=== PATIENT | male | born 1975 | race Caucasian/White ===

== ENCOUNTER 2018-01-20 11:39 | Observation (INO) | payer MEDICAID, OTHER ==
--- NOTE | 2018-01-20 12:28 | EDPHY ---
H & P Time Seen by Provider: 01/20/18 11:57 HPI/ROS: CHIEF COMPLAINT: Vertigo, visual change HISTORY OF PRESENT ILLNESS: The patient is a 42-year-old male who presents emergency department status post craniotomy. The patient went into the emergency department 2 weeks ago. He was found to have a tumor that required resection. He underwent surgery by Dr. Cavanaugh at [facility] on Sunday. Per report, the procedure was complicated. There is a cyst surrounding the tumor. This increased the length of the planned surgery. Immediately after the operation the patient felt dizzy and had visual change. His dizziness has worsened. He also feels as though his vision is choppy. He has no significant headache. No vomiting. No incoordination. REVIEW OF SYSTEMS: My complete review of systems is negative except as mentioned in the HPI. Past Medical/Surgical History: Includes brain tumor, neck fusion, craniotomy Smoking Status: Never smoked Physical Exam: Vitals noted GENERAL: Mild acute distress, alert. HEENT: Eyes normal to inspection, normal pharynx, no signs of dehydration. Slight nystagmus. NECK: No thyromegaly, no lymphadenopathy, supple. RESPIRATORY: Clear to auscultation bilaterally, no rales, rhonchi or wheezing. CVS: Regular rate and rhythm, no rubs, murmurs, or gallops. ABDOMEN: Soft, nontender, nondistended, no organomegaly. BACK: Normal to inspection, no CVA tenderness. SKIN: Normal color, no rash, warm, dry. No pallor. EXTREMITIES: No pedal edema, no calf tenderness, no Homans sign or cords, no joint swelling. NEURO/PSYCH: Higher functions: Alert and Oriented x3. Normal speech and cognition. Flat affect. Cranial nerves: Normal as tested. Cerebellar: Good finger to nose, good [id number]. Peripheral exam: Normal motor exam. Normal sensation. Normal reflexes. Constitutional: Initial Vital Signs Temperature (C) 36.8 C 01/20/18 11:40 Heart Rate 101 H 01/20/18 11:40 Respiratory Rate 16 01/20/18 11:40 Blood Pressure 124/92 H 01/20/18 11:40 O2 Sat (%) 94 01/20/18 11:40 O2 Delivery Mode Room Air Allergies/Adverse Reactions: CONTRAST DYE Allergy (Uncoded 01/20/18 11:45) Home Medications: Medication Instructions Recorded Lorazepam 01/20/18 Meclizine HCl [Meclizine HCl 25 mg 25 mg PO TID #15 tab 01/20/18 (RX,OTC)] Percocet 01/20/18 Medical Decision Making - Diagnostics Imaging Results: Imaging Impressions Head CT 01/20/18 12:29 Impression: 1. Volume loss and postsurgical changes in the right cerebellum with no definite acute findings. If previous studies can be made available, I would happy to compare them. 2. Fluid superficial and deep to the right occipital craniotomy defect of questionable clinical significance, possibly related to seroma and/or CSF with no visible hemorrhage. Findings discussed with Flor Sanabria MD on January 20, 2018 at 1304 hours. ED Course/Re-evaluation: In the emergency department I discussed possible etiologies with the patient and family. I answered all his questions. Patient had a procedure performed at [facility] on abnormality record of the procedure. I discussed case with Neurosurgery. They recommended noncontrast head CT. Patient was given meclizine [address]: Please refer the dictated report. Findings consistent with postoperative changes. On recheck the patient was complaining of his headache. He is given fentanyl 150 mcg IV. He is given Zofran 4 mg IV for nausea. Rechecked the patient. He did not feel comfortable being discharged home. He still feels dizzy his pain is not controlled. I spoke with Neurosurgery and they will evaluate the patient. The patient will be admitted to the hospitalist service. Differential Diagnosis: My differential includes but is not limited to subarachnoid hemorrhage, subdural hematoma, epidural hematoma, edema, CVA, meningitis, cellulitis, dissection, aneurysm - Data Points Laboratory Results: Laboratory Results 01/20/18 12:05 01/20/18 12:05 01/20/18 01/20/18 01/20/18 12:05 12:05 12:05 WBC 12.24 10^3/uL H 10^3/uL (3.80-9.50) RBC 5.45 10^6/uL 10^6/uL (4.40-6.38) Hgb 17.3 g/dL g/dL (13.7-17.5) Hct 48.5 % % (40.0-51.0) MCV 89.0 fL fL (81.5-99.8) MCH 31.7 pg pg (27.9-34.1) MCHC 35.7 g/dL g/dL (32.4-36.7) RDW 11.5 % % (11.5-15.2) Plt Count 281 10^3/uL 10^3/uL (150-400) MPV 9.5 fL fL (8.7-11.7) Neut % (Auto) 73.3 % % (39.3-74.2) Lymph % (Auto) 20.1 % % (15.0-45.0) [place] % (Auto) 3.8 % L % (4.5-13.0) Eos % (Auto) 1.1 % % (0.6-7.6) Baso % (Auto) 0.3 % % (0.3-1.7) Nucleat RBC Rel Count 0.0 % % (0.0-0.2) Absolute Neuts (auto) 8.98 10^3/uL H 10^3/uL (1.70-6.50) Absolute Lymphs (auto) 2.46 10^3/uL 10^3/uL (1.00-3.00) Absolute Monos (auto) 0.46 10^3/uL 10^3/uL (0.30-0.80) Absolute Eos (auto) 0.13 10^3/uL 10^3/uL (0.03-0.40) Absolute Basos (auto) 0.04 10^3/uL 10^3/uL (0.02-0.10) Absolute Nucleated RBC 0.00 10^3/uL 10^3/uL (0-0.01) Immature Gran % 1.4 % H % (0.0-1.1) Immature Gran # 0.17 10^3/uL H 10^3/uL (0.00-0.10) PT 12.6 SEC SEC (12.0-15.0) INR 0.92 (0.83-1.16) APTT 27.2 SEC SEC (23.0-38.0) Sodium 139 mEq/L mEq/L (135-145) Potassium 4.5 mEq/L mEq/L (3.3-5.0) Chloride 98 mEq/L mEq/L (97-110) Carbon Dioxide 28 mEq/l mEq/l (22-31) Anion Gap 13 mEq/L mEq/L (8-16) BUN 26 mg/dL H mg/dL (7-23) Creatinine 1.0 mg/dL mg/dL (0.7-1.3) Estimated GFR > 60 Glucose 107 mg/dL H mg/dL (70-100) Calcium 9.5 mg/dL mg/dL (8.5-10.4) Medications Given: Discontinued Medications Fentanyl (Sublimaze) 150 mcg IVP EDNOW ONE Stop: 01/20/18 13:22 Last Admin: 01/20/18 13:34 Dose: 150 mcg Meclizine HCl (Meclizine Hcl) 25 mg PO EDNOW ONE Stop: 01/20/18 12:56 Last Admin: 01/20/18 13:02 Dose: 25 mg Ondansetron HCl (Zofran) 4 mg IVP EDNOW ONE Stop: 01/20/18 13:22 Last Admin: 01/20/18 13:35 Dose: 4 mg Departure - Departure Disposition: [facility] Inpatient Acute Clinical Impression: Vertigo Condition: Good Instructions: Vertigo (ED) Additional Instructions: Return with increasing headache, worsening symptoms or any other concerns. Call Sunday to make an appointment with Neurosurgery. Referrals: Jose Manuel Cavanaugh MD [Medical Doctor] - 1-2 days without fail Prescriptions: Meclizine HCl [Meclizine HCl 25 mg (RX,OTC)] 25 mg PO TID #15 tab
[2018-01-20 12:38] LABS: PLATELET COUNT 281 10^3/uL (150-400)
[2018-01-20 12:46] LABS: INR 0.92 (0.83-1.16); PROTIME(PATIENT) 12.6 SEC (12.0-15.0)
[2018-01-20] MEDS ORDERED: MECLIZINE HCL 25 MG TAB PO ONE (12:55)
[2018-01-20] MEDS ORDERED: ONDANSETRON 4 MG/2 ML VIAL IVP ONE (13:21)
[2018-01-20] MEDS ORDERED: fentaNYL 100 MCG/2 ML INJ IVP ONE ×2 (13:21→15:05)
[2018-01-20] MEDS ORDERED: ONDANSETRON 4 MG/2 ML VIAL IVP PRN (15:04)
[2018-01-20] MEDS ORDERED: MECLIZINE HCL 25 MG TAB PO PRN (15:04)
[2018-01-20] MEDS ORDERED: fentaNYL 100 MCG/2 ML INJ IVP PRN (15:04)
[2018-01-20] MEDS ORDERED: ONDANSETRON DISINTEGRATING 4 MG TAB PO PRN (15:04)
[2018-01-20] MEDS ORDERED: fentaNYL 100 MCG/2 ML INJ ONE (15:10)
--- NOTE | 2018-01-20 15:11 | PDGENHP ---
History and Physical - Chief Complaint Nausea, vertigo - History of Present Illness The patient is a 42-year-old male who presents status post craniotomy. The patient went into the emergency department 2 weeks ago. He was found to have a tumor that required resection. He underwent surgery by Dr. Cavanaugh at [facility] on Sunday and discharged home. Since being discharged he has had persistent nausea and vertigo. He presented due to worsening symptoms. In the ED he had a CT Head which was unremarkable for acute pathology. NS has been consulted. He has been given Fentanyl, Zofran, and Meclizine with some improvement. He denies REDDING or localizing symptoms. He is able to take PO. no cp or sob. Past Medical/Surgical History: Includes brain tumor, neck fusion, craniotomy Smoking Status: Never smoked FMHx: non contributory History Information - Allergies/Home Medication List Allergies/Adverse Reactions: CONTRAST DYE Allergy (Mild, Uncoded 01/20/18 14:48) Home Medications: Acetaminophen [Tylenol 325mg (*)] 325 mg PO Q6 PRN 01/20/18 [Last Taken 01/19/18 ] LORazepam [Ativan (*)] 1 mg PO HS 01/20/18 [Last Taken 01/19/18] Melatonin [Melatonin 3 MG (*)] 3 mg PO HS 01/20/18 [Last Taken 01/19/18] oxyCODONE IR [Oxycodone Ir (*)] 5 - 10 mg PO Q4H PRN 01/20/18 [Last Taken ] traZODone [traZODONE 50MG (*)] 50 mg PO HS 01/20/18 [Last Taken 01/19/18] I have personally reviewed and updated: medical history, social history - Social History Smoking Status: Never smoked Review of Systems Review of Systems: ROS: 10pt was reviewed & negative except for what was stated in HPI & below Physical Exam Physical Exam: Temp Pulse Resp BP Pulse Ox 36.8 C 71 16 126/77 H 92 01/20/18 11:40 01/20/18 13:36 01/20/18 13:36 01/20/18 13:36 01/20/18 13:36 Constitutional: no apparent distress Eyes: PERRL, EOMI Ears, Nose, Mouth, Throat: moist mucous membranes Cardiovascular: regular rate and rhythym, no murmur, rub, or gallop Respiratory: no respiratory distress, no rales or rhonchi Gastrointestinal: normoactive bowel sounds, soft, non-tender abdomen Skin: warm Musculoskeletal: full muscle strength Neurologic: AAOx3 Psychiatric: interacting appropriately, not anxious, not encephalopathic Lymph, Heme, Immunologic: No petechiae Lab Data & Imaging Review 01/20/18 12:05 01/20/18 12:05 WBC 12.24 10^3/uL (3.80-9.50) H 01/20/18 12:05 RBC 5.45 10^6/uL (4.40-6.38) 01/20/18 12:05 Hgb 17.3 g/dL (13.7-17.5) 01/20/18 12:05 Hct 48.5 % (40.0-51.0) 01/20/18 12:05 MCV 89.0 fL (81.5-99.8) 01/20/18 12:05 MCH 31.7 pg (27.9-34.1) 01/20/18 12:05 MCHC 35.7 g/dL (32.4-36.7) 01/20/18 12:05 RDW 11.5 % (11.5-15.2) 01/20/18 12:05 Plt Count 281 10^3/uL (150-400) 01/20/18 12:05 MPV 9.5 fL (8.7-11.7) 01/20/18 12:05 Neut % (Auto) 73.3 % (39.3-74.2) 01/20/18 12:05 Lymph % (Auto) 20.1 % (15.0-45.0) 01/20/18 12:05 [place] % (Auto) 3.8 % (4.5-13.0) L 01/20/18 12:05 Eos % (Auto) 1.1 % (0.6-7.6) 01/20/18 12:05 Baso % (Auto) 0.3 % (0.3-1.7) 01/20/18 12:05 Nucleat RBC Rel Count 0.0 % (0.0-0.2) 01/20/18 12:05 Absolute Neuts (auto) 8.98 10^3/uL (1.70-6.50) H 01/20/18 12:05 Absolute Lymphs (auto) 2.46 10^3/uL (1.00-3.00) 01/20/18 12:05 Absolute Monos (auto) 0.46 10^3/uL (0.30-0.80) 01/20/18 12:05 Absolute Eos (auto) 0.13 10^3/uL (0.03-0.40) 01/20/18 12:05 Absolute Basos (auto) 0.04 10^3/uL (0.02-0.10) 01/20/18 12:05 Absolute Nucleated RBC 0.00 10^3/uL (0-0.01) 01/20/18 12:05 Immature Gran % 1.4 % (0.0-1.1) H 01/20/18 12:05 Immature Gran # 0.17 10^3/uL (0.00-0.10) H 01/20/18 12:05 PT 12.6 SEC (12.0-15.0) 01/20/18 12:05 INR 0.92 (0.83-1.16) 01/20/18 12:05 APTT 27.2 SEC (23.0-38.0) 01/20/18 12:05 Sodium 139 mEq/L (135-145) 01/20/18 12:05 Potassium 4.5 mEq/L (3.3-5.0) 01/20/18 12:05 Chloride 98 mEq/L (97-110) 01/20/18 12:05 Carbon Dioxide 28 mEq/l (22-31) 01/20/18 12:05 Anion Gap 13 mEq/L (8-16) 01/20/18 12:05 BUN 26 mg/dL (7-23) H 01/20/18 12:05 Creatinine 1.0 mg/dL (0.7-1.3) 01/20/18 12:05 Estimated GFR > 60 01/20/18 12:05 Glucose 107 mg/dL (70-100) H 01/20/18 12:05 Calcium 9.5 mg/dL (8.5-10.4) 01/20/18 12:05 Assessment & Plan Assessment: #Vertigo #Nausea #s/p craniectomy for Cerebellar tumor #Leukocytosis, no obvious signs of infection Plan: Observation antiemetics IVF NS to eval SCD's PT
[2018-01-20] MEDS: NS 1,000 ML IV SCH ×2 (16:54→17:02)
[2018-01-20] MEDS: OXYCODONE/APAP 5/325 TAB PO PRN ×2 (17:34→22:36)
--- NOTE | 2018-01-20 17:37 | GCON ---
[f rep st] CONSULTATION NEUROSURGERY CONSULT DATE OF CONSULTATION: 01/20/2018 Patient was seen and evaluated at 4:50 p.m. on the general care floor at [facility]. 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 The surgery went well a nd the postoperative imaging showed no residual. He was discharged to rehab, but checked out of reha b AMA a day later because he says he was not having adequate pain control. Since that time, he has b een home and says that he has been having increasing headaches over the last 3 days. He has also had a lot of dizziness and trouble with his walking because of the dizziness. He has not had any falls. He denies any significant nausea, vomiting, or fevers. He presented back today because of these sy mptoms. CT in the ER revealed no signs of hydrocephalus with the brain nicely re-expanded into the a wilder of the resection cavity where the large hemangioblastoma cyst was located. There was not any sig n of stroke or swelling which would be unusual on these scans. REVIEW OF SYSTEMS: A 10-point review of systems is negative other than that described above in the H PI. PAST MEDICAL HISTORY: 1. Hemangioblastoma. 2. Neck fusion. 3. Craniotomy for tumor resection. SOCIAL HISTORY: Patient is alone today, but typically is accompanied by his family. He denies any t obacco, alcohol, or other drug use. FAMILY HISTORY: Reviewed, but was noncontributory to this admission. ALLERGIES: Contrast dye. HOME MEDICATIONS: 1. Tylenol. 2. Ativan. 3. Melatonin. 4. Oxycodone. 5. Trazodone. PHYSICAL EXAMINATION: VITAL SIGNS: Currently, he is afebrile with normal stable vital signs. NEURO LOGIC: He is awake, alert, and oriented x3. Pupils are equal, round, and react to light. His extra ocular movements are intact. Face is symmetric. Tongue is midline. He does not have any nystagmus. He has full 5/5 strength of the deltoid, biceps, triceps, wrist flexion, extension, and general ledger bookkeeper bilate rally. In the lower extremities, he has 5/5 strength of the hip flexors, extensors, knee flexors, ex tensors, and plantar and dorsiflexion bilaterally. There is no dysmetria. His sensation is normal. There is no dysdiadochokinesia. SKIN: His incision is healing well with no signs of infection. LABORATORY REVIEW: White count is 12.2, hemoglobin 17.3, hematocrit 48.3. Platelet count is 281,000 . Sodium is 139, potassium 4.5, BUN is 26, creatinine 1.0, glucose 107. IMAGING REVIEW: See HPI. ASSESSMENT/PLAN: The patient is a 42-year-old man who was recently diagnosed with hemangioblastoma. He presents back with increasing headaches and some vertigo and dizziness. The dizziness was his pr eoperative symptom primarily. I wonder if some of his symptoms are exacerbated by his narcotics and medication overuse. Typically we do not see quite this much headache or pain after these types of faith rgeries. He also weaned off steroids just in the last few days, which corresponded to the increase i n his headaches, so perhaps increasing his steroids to Decadron 4 q.8 with a 1-week taper would also be a reasonable option for treating some of this. I think trying to stay with nonsteroidal anti-infl ammatory such as Toradol and steering clear of narcotics would be ideal as much as possible. He is a lready on some treatment with meclizine for his vertigo and another option may be Valium if this is n ot working well. I do not expect that he will need to be in the hospital for long, but we will follow along while he i s here. Please do not hesitate to contact us with any further questions or concerns. Thanks for the kind consultation. /[id number]/MODL
[2018-01-20] MEDS: fentaNYL 100 MCG/2 ML INJ IVP PRN (18:50)
[2018-01-20] MEDS: KETOROLAC 30 MG/1 ML SDV IVP SCH (19:53)
[2018-01-20] MEDS: DEXAMETHASONE 4 MG TAB PO SCH (19:53)
[2018-01-20] MEDS ORDERED: traZODone 50 MG TAB PO SCH (21:00)
[2018-01-20] MEDS ORDERED: LORazepam 1 MG TAB PO SCH (21:00)
[2018-01-20] MEDS ORDERED: MELATONIN 3 MG TAB PO SCH (21:00)
[2018-01-20] MEDS ORDERED: DEXAMETHASONE 4 MG TAB PO SCH (22:00)
[2018-01-21] MEDS: DEXAMETHASONE 4 MG TAB PO SCH ×3 (02:02→14:25)
[2018-01-21] MEDS: KETOROLAC 30 MG/1 ML SDV IVP SCH ×3 (02:03→13:19)
[2018-01-21] MEDS: fentaNYL 100 MCG/2 ML INJ IVP PRN ×2 (02:12→08:42)
[2018-01-21] MEDS: ACETAMINOPHEN 325 MG TAB PO PRN ×2 (04:51→16:44)
[2018-01-21 05:09] LABS: PLATELET COUNT 259 10^3/uL (150-400)
[2018-01-21] MEDS: OXYCODONE/APAP 5/325 TAB PO PRN ×2 (06:45→11:32)
[2018-01-21] MEDS ORDERED: *MD ORDERING ONLY-DEXAMETHASONE TAPER IVP/PO SCH (09:45)
--- NOTE | 2018-01-21 09:46 | NEUSURGPN ---
Assessment/Plan: A: 42 yo male sp right retrosigmoid craniotomy for tumore resection approximately 2 weeks ago. Presenting with increasing pain, headaches, dizziness. Admitted for pain conrol P: -CT scan reassuring -Overall doing better this morning, headache 4/10 and wants to get up and out of bed -Placed back on steroids. 4mg q8 and will taper over next week -Optimize pain management- AVOID NARCOTICS, use Tylenol, ibuprofen, etc for headaches -PT/OT -If pain under control and passes therapies, can go home later today from neurosurgery standpoint, otherwise maybe tomorrow -Discussed with Dr. Cavanaugh as well S: Patient states he is feeling better this morning. Headache is improved at 4/ 10 and dizziness somewhat improved although he has not moved around much yet today. O: Alert, Awake PERRl, EOMI CN II-XII grossly intact Following commands, speech fluent BUE/BLE /= Incision c/d/i - Physician Discussed Patient with Dr.: Cavanaugh Neurosurgery Physical Exam - Vitals, I&O, Labs I and O 01/20/18 01/21/18 01/22/18 05:59 05:59 05:59 Intake Total 1700 Output Total 2830 Balance -1130 Weight 90.718 kg Intake: Oral (ml) 950 IV Intake (ml) 750 Output: Urine (ml) 2830 Urinal 1850 Other: Intake Quantity Yes Sufficient Number of Voids Urinal 1 Vital Signs Temp Pulse Resp BP Pulse Ox 36.7 C 77 16 153/84 H 94 01/21/18 08:56 01/21/18 08:56 01/21/18 08:56 01/21/18 08:56 01/21/18 08:56 Laboratory Results 01/21/18 04:56 01/21/18 04:56 ICD10 Worksheet Patient Problems: Problems Problem Status Onset Vertigo Acute
--- NOTE | 2018-01-21 11:56 | HOSPPROG ---
Hospitalist Progress Note Assessment/Plan: Patient is a 42-year-old male status post a craniotomy for a tumor resection approximately 2 weeks ago. He presented the emergency room with headaches and dizziness. Today is my 1st encounter with the patient. Chart reviewed. Appreciate neurosurgery is involvement. I reviewed the CT of his head which was unremarkable. * headache -appreciate neurosurgery they have restarted steroids -avoiding narcotics due to causing rebound headaches -trial of Tylenol and ibuprofen for his headaches * vertigo with associated nausea *Leukocytosis -poss secondary to steroids -will have this rechecked *Plan: get orthostatic vital signs, ordered an IP rehab evaluation. If improved ; will dc later today Subjective: Omar is feeling much better today. Still dizzy, but headache is much better. Objective: Vital Signs Temp Pulse Resp BP Pulse Ox 36.7 C 77 16 153/84 H 94 01/21/18 08:56 01/21/18 08:56 01/21/18 08:56 01/21/18 08:56 01/21/18 08:56 Laboratory Results 01/21/18 04:56 01/21/18 04:56 01/20/18 01/21/18 01/22/18 05:59 05:59 05:59 Intake Total 1700 Output Total 2830 275 Balance -1130 -275 PT 12.6 SEC (12.0-15.0) 01/20/18 12:05 INR 0.92 (0.83-1.16) 01/20/18 12:05 - Physical Exam Constitutional: uncomfortable Eyes: EOMI Ears, Nose, Mouth, Throat: hearing normal Cardiovascular: regular rate and rhythym Respiratory: no respiratory distress Gastrointestinal: normoactive bowel sounds Skin: warm Neurologic: AAOx3 Psychiatric: interacting appropriately, not encephalopathic ICD10 Worksheet Patient Problems: Problems Problem Status Onset Vertigo Acute
--- NOTE | 2018-01-21 13:48 | ASMTCMCOM ---
CM Note CM Note Notes: Pt had craniotomy 2 weeks ago at [facility] with Dr. Cavanaugh, presents to ED with headache. Pt now on steroids. PT rec inpatient rehab. BOILER RELINER/OT pending. Pt was d/c from [facility] to [facility] Acute inpatient rehab, he left AMA and is not interested in another rehab placement Pt wants to return home with family support and continued services with [facility] PT. FC emailed pt insurance is Medicaid not [employer]. CM to follow. Date Signed: 01/21/2018 01:47 PM Electronically Signed By:MARICARMEN Gonzalez
[2018-01-21 15:59] VITALS: BP 136/74
--- NOTE | 2018-01-21 16:09 | PDIAF ---
- Diagnosis Diagnosis: headache after getting a craniotomy Code Status: Full Code - Medication Management Discharge Medications: Medications to Continue on Transfer Acetaminophen [Tylenol 325mg (*)] 325 mg PO Q6 PRN 01/20/18 [Last Taken 01/19/18 ] LORazepam [Ativan (*)] 1 mg PO HS 01/20/18 [Last Taken 01/19/18] Melatonin [Melatonin 3 MG (*)] 3 mg PO HS 01/20/18 [Last Taken 01/19/18] oxyCODONE IR [Oxycodone Ir (*)] 5 - 10 mg PO Q4H PRN 01/20/18 [Last Taken ] traZODone [traZODONE 50MG (*)] 50 mg PO HS 01/20/18 [Last Taken 01/19/18] Dexamethasone [Decadron 2 MG (*)] 2 mg PO BID tab 01/21/18 [Last Taken Unknown] Dexamethasone [Decadron 2 MG (*)] 2 mg PO DAILY tab 01/21/18 [Last Taken Unknown] Dexamethasone [Decadron 4 MG (*)] 4 mg PO BID tab 01/21/18 [Last Taken Unknown] Dexamethasone [Decadron 4 MG (*)] 4 mg PO Q8 tab 01/21/18 [Last Taken Unknown] Ibuprofen 400 mg PO Q4 PRN #30 tablet 01/21/18 [Last Taken Unknown] Meclizine HCl [Meclizine HCl 25 mg (RX,OTC)] 25 mg PO BID PRN tab 01/21/18 [ Last Taken Unknown] oxyCODONE/APAP 5/325 [Percocet 5/325 (*)] 1 - 2 tab PO Q4HRS PRN tab 01/21/18 [ Last Taken Unknown] Discharge Medications: Refer to the Discharge Home Medication list for PRN reason. - Orders Services needed: Home Care, Registered Nurse, Physical Therapy, Occupational Therapy Home Care Face to Face: I certify that this patient was under my care and that I had the required [id number] encounter meeting the encounter requirements on the discharge day. My findings support the fact that the patient is homebound as defined in Home Care Face to Face Continued: CMS Chapter 7 Medicare Benefits Manual 30.1.1 , The condition of the patient is such that there exists a normal inability to leave home and consequently, leaving home would require a considerable and taxing effort. Diet Recommendation: no restrictions on diet Diet Texture: Regular Texture Diet Additional Instructions: Return with increasing headache, worsening symptoms or any other concerns. A script for the dexamethasone was written out for you to get filled, because of the changing doses, was unable to send to [facility]' stay well hydrated try ibuprofen or Tylenol for headache Sleep with the HOB up/ this will help with the headache f/u with Dr Cavanaugh - Follow Up Care Current Providers and Referrals: Jose Manuel Cavanaugh MD [Medical Doctor] - 1-2 days without fail
--- NOTE | 2018-01-21 16:39 | GDS ---
[f rep st] DISCHARGE SUMMARY DISCHARGE DIAGNOSES: 1. Headache after having a craniotomy approximately 2 weeks ago. 2. Vertigo with associated nausea. 3. Leukocytosis. CONSULTATION: Dr. Jose Manuel Cavanaugh. HISTORY OF PRESENT ILLNESS: Briefly, the patient is a 42-year-old male status post a craniotomy for tumor resection approximately 2 weeks ago. He presented to the emergency room with headache and dizziness. He had a CT of the head, which was unremarkable. He was seen and evaluated by Neurosurgery. They placed him back on a dexamethasone taper. He is feeling markedly better. He will follow up with Dr. Cavanaugh in the outpatient setting. HOSPITAL COURSE: 1. Headache. Patient is markedly improved. Narcotics have been avoided due to causing rebound headaches. 2. Vertigo with associated nausea. He has been ambulating well in the room. Checked orthostatics, they were stable. 3. Leukocytosis. I suspect this is secondary to his steroids. DISCHARGE CONDITION: Stable. Blood pressure is 136/74, heart rate is 72, respiratory rate of 16, O2 sats on room air 92%, temperature 36.8 Celsius. DISCHARGE MEDICATIONS: Please see the EMR. DISCHARGE INSTRUCTIONS: 1. Further follow up with Dr. Cavanaugh. 2. If he develops fever, chills, chest pain, worsening headaches, return to the ER. /[id number]/MODL MTDD
--- NOTE | 2018-01-21 16:55 | ASMTCMCOM ---
CM Note CM Note Notes: Pt medically stable for d/c with [facility] PT/RN/OT. Orders sent in [employer] and faxed [phone] per Nathalie's request. Date Signed: 01/21/2018 04:55 PM Electronically Signed By:MARICARMEN Gonzalez
--- NOTE | 2018-01-22 08:21 | ASDISCHSUM ---
Discharge Information Plan Status:Home with Home Health Medically Cleared to Leave: Discharge Date:01/21/2018 05:21 PM CM D/C Disposition: ADT D/C Disposition:Home, Routine, Self-Care Projected Discharge Date:01/22/2018 11:00 AM Transportation at D/C: Discharge Delay Reason: Follow-Up Date:01/22/2018 11:00 AM Discharge Slot: Final Diagnosis: Placement Information Referral Type:*Home Health Care Services Referral ID:[id number] Provider Name:[facility] Address 1:[address] [place] [address] Address 2: City:[place]: State:[place] Patient Contact Information Contact Name:ALYSSA Relationship:Mother Address:[address] Work Phone: [place] [place] Phone: State/Zip Code:[place] [address] Email: Financial Information Financial Class:Medicaid Primary Plan Desc:MEDICAID HEALTH FIRST DENTAL SCHEDULER Primary Plan Number:[id number] Secondary Plan Desc: Secondary Plan Number: Assessment Information [facility] CM Progress Note CM Note CM Note Notes: Pt had craniotomy 2 weeks ago at [facility] with Dr. Cavanaugh, presents to ED with headache. Pt now on steroids. PT rec inpatient rehab. [facility]ER/OT pending. Pt was d/c from [facility] to [facility] Acute inpatient rehab, he left [place] and is not interested in another rehab placement Pt wants to return home with family support and continued services with [facility] PT. emailed pt insurance is Medicaid not [id number]. CM to follow. Date Signed: 01/21/2018 01:47 PM Electronically Signed By:MARICARMEN Gonzalez [facility] CM Progress Note CM Note CM Note Notes: Pt medically stable for d/c with [facility] PT/RN/OT. Orders sent in [employer] and faxed [phone] per Nathalie's request. Date Signed: 01/21/2018 04:55 PM Electronically Signed By:MARICARMEN Gonzalez Intervention Information
[2018-01-22] MEDS ORDERED: DEXAMETHASONE 4 MG TAB PO SCH (09:00)
[2018-01-24] MEDS ORDERED: DEXAMETHASONE 2 MG TAB PO SCH (09:00)
[2018-01-26] MEDS ORDERED: DEXAMETHASONE 2 MG TAB PO SCH (09:00)
== END 2018-01-21 17:21 | disposition home or self-care (01) ==
LOC: F3N 16:36
PROVIDERS: ADMIT Family Medicine; ATTEND Family Medicine
DX: R51 Headache (principal); C49.0 Malignant neoplasm of connective and soft tissue of head, face and neck; Z48.3 Aftercare following surgery for neoplasm; R42 Dizziness and giddiness
CPT/HCPCS: 70450; 97116; 97161; G0378; 96374; J1885; J2405; J3010